=== PATIENT | male | born 1985 | race Caucasian/White ===

== ENCOUNTER 2018-09-24 15:23 | Emergency (ER) | payer MEDICAID ==
[2018-09-24 15:28] VITALS: BMI 30.1
[2018-09-24 15:35] VITALS: RESP 18; TEMP 98.2
[2018-09-24] MEDS ORDERED: TDAP Vaccine 0.5 mL Syr IM ONE (15:50)
--- NOTE | 2018-09-24 16:07 | ED PDOC ---
Arrival/HPI - General Chief Complaint: Abnormal Skin Integrity Time Seen by Provider: 09/24/18 15:25 Historian: Patient, Other (friend) EM Caveat: Language Barrier - History of Present Illness Narrative History of Present Illness (Text): 09/24/18 16:00 32 year old male, with no significant past medical history, presents to emergency department with complaints of a laceration to right hand when he was c utting bags of flour at work prior to arrival. Nephew states the cut was gushing blood and that patient described the pain as "throbbing." Nephew notes patient is currently not taking any medication. Patient denies any fevers, chills, headache, dizziness, chest pain, shortness of breath, dyspnea on exertion, cough, abdominal pain, nausea, vomiting, diarrhea, back pain, neck pain, or any other complaints. Time/Duration: Prior to Arrival Symptom Onset: Gradual Symptom Course: Unchanged Activities at Onset: Light Context: Work Past Medical History - Provider Review Nursing Documentation Reviewed: Yes - Infectious Disease Hx of Infectious Diseases: None - Psychiatric Hx Substance Use: No Family/Social History - Physician Review Nursing Documentation Reviewed: Yes Family/Social History: Unknown Family HX Smoking Status: Current Some Days Smoker Hx Alcohol Use: No Hx Substance Use: No Allergies/Home Meds Allergies/Adverse Reactions: Allergies No Known Allergies Allergy (Verified 09/24/18 16:30) Review of Systems - Physician Review All systems were reviewed & negative as marked: Yes - Review of Systems Respiratory: absent: SOB, Cough, Wheezing Cardiovascular: absent: Chest Pain Gastrointestinal: absent: Abdominal Pain, Diarrhea, Nausea, Vomiting Genitourinary Male: absent: Urinary Output Changes Musculoskeletal: absent: Back Pain, Neck Pain Skin: Laceration (right hand ) Physical Exam Vital Signs Reviewed: Yes Vital Signs Temp Pulse Resp BP Pulse Ox 09/24/18 15:24 98.2 F 76 18 121/79 99 Temperature: Afebrile Blood Pressure: Normal Pulse: Regular Respiratory Rate: Normal Appearance: Positive for: Well-Appearing, Non-Toxic, Comfortable Pain Distress: None Mental Status: Positive for: Alert and Oriented X 3 - Systems Exam Head: Present: Atraumatic, Normocephalic Pupils: Present: PERRL Extroacular Muscles: Present: EOMI Conjunctiva: Present: Normal Mouth: Present: Moist Mucous Membranes Neck: Present: Normal Range of Motion Respiratory/Chest: Present: Clear to Auscultation, Good Air Exchange. No: Respiratory Distress, Accessory Muscle Use Cardiovascular: Present: Regular Rate and Rhythm, Normal S1, S2. No: Murmurs Abdomen: No: Tenderness, Distention, Peritoneal Signs Back: Present: Normal Inspection Upper Extremity: Present: Normal Inspection, NORMAL PULSES (radial pulses intact). No: Cyanosis, Edema Lower Extremity: Present: Normal Inspection. No: Edema Neurological: Present: GCS=15 Skin: Present: Warm, Dry, Normal Color, Laceration (0.5 cm simple linear laceration to smith surface of right hand, no foreign bodies, no visible subcutaneous tissue). No: Rashes Psychiatric: Present: Alert Medical Decision Making ED Course and Treatment: 09/24/18 16:28 Impression: 32 year old male presents to emergency department for laceration on right hand after cutting bags of flour at work. Differential Diagnosis included but are not limited to: -- laceration --abrasion Plan: --Wound repair(Dermabond) -- Reassess and disposition Prior Visits: Notes and results from previous visits were reviewed. Progress Notes: 09/24/18 17:15 Wound reassessed after iodine soak and noted to have minimal depth with no exposure of subcutaneous tissue or underlying dermal structures. Dermabond applied to wound with patient warned to stay away from moisture or using the hand. The patient and his brother understands and will return to ED should any pain, purulence, discoloration or parathesias occur. He is stable for dsicharge. - Medication Orders Current Medication Orders: Tetanus/Reduced Diphtheria/Acell Pertussis (Boostrix Vaccine Inj) 0.5 ml IM .ONCE ONE Stop: 09/24/18 15:51 - Scribe Statement The provider has reviewed the documentation as recorded by the Scribe Nico Blair All medical record entries made by the Scribe were at my direction and personally dictated by me. I have reviewed the chart and agree that the record accurately reflects my personal performance of the history, physical exam, medical decision making, and the department course for this patient. I have also personally directed, reviewed, and agree with the discharge instructions and disposition. Disposition/Present on Arrival - Present on Arrival Any Indicators Present on Arrival: No History of DVT/PE: No History of Uncontrolled Diabetes: No Urinary Catheter: No History of Decub. Ulcer: No History Surgical Site Infection Following: None - Disposition Have Diagnosis and Disposition been Completed?: Yes Diagnosis: Hand abrasion Disposition: HOME/ ROUTINE Disposition Time: 17:06 Patient Plan: Discharge Condition: IMPROVED Discharge Instructions (ExitCare): Skin Abrasions (DC) Print Language: URDU Additional Instructions: All medical record entries made by the Scribe were at my direction and personally dictated by me. I have reviewed the chart and agree that the record accurately reflects my personal performance of the history, physical exam, medical decision making, and the department course for this patient. I have also personally directed, reviewed, and agree with the discharge instructions and disposition. Please keep moisture away from hand for 12 hrs Referrals: Dinah iKdd MD [Medical Doctor] - Follow up with primary [facility] at [facility] [place] [Outside] - Follow up with primary Forms: [employer] (Ecuadorean)
[2018-09-24 17:25] VITALS: BP 129/76; PULSE 75; O2SAT 98
== END 2018-09-24 17:24 | disposition home or self-care (01) ==
LOC: ED 15:23
DX: S60.511A Abrasion of right hand, initial encounter (principal); W45.8XXA Other foreign body or object entering through skin, initial encounter; Y99.0 Civilian activity done for income or pay; Z23 Encounter for immunization